=== PATIENT | male | born 1940 | race Asian ===

== ENCOUNTER 2023-08-11 17:23 | Inpatient (IN) | payer OTHER ==
[~2023-08-11] VITALS: Ht 165.1 cm; Wt 82.1 kg
[2023-08-11 17:55] LABS: BASOPHILS % (AUTO) 0.6 % (0.0-2.0); EOSINOPHILS # (AUTO) 0.1 K/uL (0.0-0.7); EOSINOPHILS % (AUTO) 1.8 % (0.0-6.0); HEMATOCRIT 30 % (39-51); HEMOGLOBIN 9.6 g/dL (13.5-17.5); LYMPHOCYTES # (AUTO) 0.5 K/uL (0.8-4.8); LYMPHOCYTES % (AUTO) 8.4 % (20.0-44.0); MEAN CORPUSCULAR HEMOGLOBIN 30 PG (26.0-33.0); MEAN CORPUSCULAR HGB CONC 33 g/dl (31.0-36.0); MEAN CORPUSCULAR VOLUME 93 fL (80-96); MONOCYTES # (AUTO) 0.3 K/uL (0.1-1.30); MONOCYTES % (AUTO) 4.5 % (2.0-12.0); NEUTROPHILS # (AUTO) 5.1 K/uL (1.8-8.9); NEUTROPHILS % (AUTO) 84.7 % (43.0-81.0); PLATELET COUNT (AUTO) 126 K/uL (150-450); RED BLOOD CELL COUNT(AUTO) 3.18 MIL/uL (4.5-6.0); RED CELL DISTRIBUTION WIDTH 14.5 % (11.5-15.0)
[2023-08-11 18:08] LABS: CALCIUM, SERUM 7.7 mg/dL (8.5-10.1); CARBON DIOXIDE 25 mmol/L (21-32); CHLORIDE 110 mmol/L (98-107); CREATININE 1.7 mg/dL (0.6-1.3); GLUCOSE 163 mg/dL (74-106); SODIUM SERUM 137 mmol/L (136-145); UREA NITROGEN, BLOOD 23 mg/dL (7-18)
[2023-08-11 18:10] LABS: INR 0.99 (0.91-1.10); PROTHROMBIN TIME 10.2 SECS (9.2-11.1)
[2023-08-11] MEDS ORDERED: ONDANSETRON HCL/PF 4 MG/2 ML VIAL ONE (18:52)
[2023-08-11] MEDS: ONDANSETRON HCL/PF - ER 4 MG/2 ML VIAL IV ONE (18:56)
[2023-08-11] MEDS ORDERED: FUROSEMIDE 20 MG/2 ML VIAL ONE (21:31)
[2023-08-11] MEDS: FUROSEMIDE 20 MG/2 ML VIAL IV ONE (21:35)
[2023-08-11 22:30] VITALS: BP 119/82; TEMP 97.7; O2SAT 98
[2023-08-11] MEDS ORDERED: ACETAMINOPHEN 325 MG TABLET PO PRN (23:00)
[2023-08-11] MEDS ORDERED: ONDANSETRON HCL/PF 4 MG/2 ML VIAL IVP PRN (23:00)
[2023-08-11] MEDS ORDERED: MORPHINE SULFATE INJ 2 MG/ML DISP.SYRIN IV PRN (23:00)
[2023-08-12 00:41] VITALS: BP 130/59; TEMP 98.8; O2SAT 96
[2023-08-12 04:43] VITALS: BP 150/64; TEMP 98.4; O2SAT 96
[2023-08-12 06:57] LABS: BASOPHILS % (AUTO) 0.4 % (0.0-2.0); EOSINOPHILS # (AUTO) 0.2 K/uL (0.0-0.7); EOSINOPHILS % (AUTO) 3.7 % (0.0-6.0); HEMATOCRIT 26 % (39-51); HEMOGLOBIN 8.9 g/dL (13.5-17.5); LYMPHOCYTES # (AUTO) 0.6 K/uL (0.8-4.8); LYMPHOCYTES % (AUTO) 11.7 % (20.0-44.0); MEAN CORPUSCULAR HEMOGLOBIN 31 PG (26.0-33.0); MEAN CORPUSCULAR HGB CONC 35 g/dl (31.0-36.0); MEAN CORPUSCULAR VOLUME 90 fL (80-96); MONOCYTES # (AUTO) 0.4 K/uL (0.1-1.30); MONOCYTES % (AUTO) 6.5 % (2.0-12.0); NEUTROPHILS # (AUTO) 4.2 K/uL (1.8-8.9); NEUTROPHILS % (AUTO) 77.7 % (43.0-81.0); PLATELET COUNT (AUTO) 118 K/uL (150-450); RED BLOOD CELL COUNT(AUTO) 2.86 MIL/uL (4.5-6.0); RED CELL DISTRIBUTION WIDTH 14.3 % (11.5-15.0); WHITE BLOOD COUNT (AUTO) 5.4 K/uL (4.3-11.0)
[2023-08-12 07:32] LABS: CARBON DIOXIDE 27 mmol/L (21-32); CHLORIDE 106 mmol/L (98-107); CREATININE 1.9 mg/dL (0.6-1.3); GLUCOSE 105 mg/dL (74-106); PHOSPHORUS 3.4 mg/dL (2.5-4.9); POTASSIUM 3.7 mmol/L (3.5-5.1); SODIUM SERUM 140 mmol/L (136-145); UREA NITROGEN, BLOOD 28 mg/dL (7-18)
[2023-08-12 07:44] LABS: MAGNESIUM 2.2 mg/dL (1.8-2.4)
[2023-08-12 08:01] VITALS: BP 168/67; TEMP 98.8; O2SAT 97
[2023-08-12] MEDS ORDERED: METO-358 PO (08:17)
[2023-08-12] MEDS ORDERED: DEXL60CA3 PO (08:17)
[2023-08-12] MEDS ORDERED: DOCU100T2 PO (08:17)
[2023-08-12] MEDS ORDERED: LOSA50TA39 PO (08:17)
[2023-08-12] MEDS ORDERED: EZET10TA15 PO (08:17)
[2023-08-12] MEDS ORDERED: ATOR40TA PO (08:17)
[2023-08-12] MEDS ORDERED: ASPI-1169 PO (08:17)
[2023-08-12] MEDS ORDERED: TAMS-12 PO (08:17)
[2023-08-12] MEDS ORDERED: ICOS1CAP PO (08:17)
[2023-08-12] MEDS ORDERED: HYDR-3642 PO (08:17)
[2023-08-12] MEDS ORDERED: TADA5TAB13 PO (08:17)
[2023-08-12] MEDS ORDERED: LEVO25TA7 PO (08:17)
[2023-08-12] MEDS ORDERED: ALLO100T PO (08:17)
[2023-08-12] MEDS ORDERED: hydrOXYzine 10 MG TABLET PO PRN (09:30)
[2023-08-12] MEDS ORDERED: Medication Not On Formulary EA (Icosapent Ethyl (Vascepa) 2 GM) PO SCH (09:30)
[2023-08-12] MEDS ORDERED: Medication Not On Formulary EA (Tadalafil 5 MG) PO SCH (09:30)
[2023-08-12] MEDS: LEVOTHYROXINE SODIUM 25 MCG TABLET PO SCH (10:01)
[2023-08-12] MEDS: BUMETANIDE INJ 8 MG in IV NS 0.9% 48 ML IV ONE (10:01)
[2023-08-12] MEDS: ATORVASTATIN 40 MG TABLET PO SCH (10:01)
[2023-08-12] MEDS: LOSARTAN POTASSIUM 50 MG TABLET PO SCH (10:01)
[2023-08-12] MEDS: TAMSULOSIN 0.4 MG CAP.SR.24H PO SCH (10:01)
[2023-08-12] MEDS: EZETIMIBE 10 MG TABLET PO SCH (10:01)
[2023-08-12] MEDS: ALLOPURINOL 100 MG TABLET PO SCH (10:02)
[2023-08-12] MEDS: ASPIRIN 81 MG TAB.CHEW PO SCH (10:02)
[2023-08-12] MEDS: METOPROLOL SUCCINATE 50 MG TAB.SR.24H PO SCH (10:05)
[2023-08-12] MEDS: DOCUSATE SODIUM 100 MG CAPSULE PO SCH (10:05)
[2023-08-12 12:00] VITALS: BP 153/60; TEMP 98.4; O2SAT 96
[2023-08-12 16:00] VITALS: BP 137/62; TEMP 98.4; O2SAT 97
[2023-08-12 16:29] LABS: APPEARANCE,URINE CLEAR (CLEAR); BILIRUBIN,URINE NEGATIVE (NEGATIVE); BLOOD, URINE NEGATIVE Ery/uL (NEGATIVE); COLOR,URINE YELLOW (YELLOW); KETONES,URINE NEGATIVE (NEGATIVE); LEUKOCYTE ESTERASE ,URINE NEGATIVE (NEGATIVE); NITRITE, URINE NEGATIVE (NEGATIVE); PH,URINE 5.5 (5.0-8.0); PROTEIN,URINE TRACE mg/dl (NEGATIVE); UGLUCOSE NEGATIVE (NEGATIVE); UROBILINOGEN,URINE 0.2 EU/dL (0.2)
[2023-08-12 17:05] LABS: CREATININE, URINE < 13.0 MG/DL (30.0-125.0); URINE SODIUM, RANDOM 123 mmol/l (40-220)
[2023-08-12 17:48] LABS: ADD URINE CULTURE NO; BACTERIA,URINE None seen /HPF (None Seen); MUCUS,URINE Few /LPF (None Seen); RBC,URINE NONE SEEN /HPF (0-2); SQUAMOUS EPITHELIAL CELL,UR None Seen /HPF (None Seen); WBC,URINE NONE SEEN /HPF (0-3)
[2023-08-12 18:37] LABS: EOSINOPHIL,URINE None Seen
[2023-08-12 20:00] VITALS: BP 148/61; TEMP 98.4; O2SAT 94; O2SAT 95
[2023-08-13] VITALS (7 sets, daily range): BP systolic 103–165; BP diastolic 54–70; TEMP 97.9–98.4; O2SAT 95–98
[2023-08-13 07:10] LABS: BASOPHILS % (AUTO) 0.4 % (0.0-2.0); EOSINOPHILS # (AUTO) 0.2 K/uL (0.0-0.7); EOSINOPHILS % (AUTO) 5.6 % (0.0-6.0); HEMATOCRIT 27 % (39-51); HEMOGLOBIN 9.3 g/dL (13.5-17.5); LYMPHOCYTES # (AUTO) 0.8 K/uL (0.8-4.8); LYMPHOCYTES % (AUTO) 17.4 % (20.0-44.0); MEAN CORPUSCULAR HEMOGLOBIN 31 PG (26.0-33.0); MEAN CORPUSCULAR HGB CONC 34 g/dl (31.0-36.0); MEAN CORPUSCULAR VOLUME 90 fL (80-96); MONOCYTES # (AUTO) 0.4 K/uL (0.1-1.30); NEUTROPHILS # (AUTO) 3.1 K/uL (1.8-8.9); NEUTROPHILS % (AUTO) 68.6 % (43.0-81.0); PLATELET COUNT (AUTO) 118 K/uL (150-450); RED CELL DISTRIBUTION WIDTH 14.7 % (11.5-15.0); WHITE BLOOD COUNT (AUTO) 4.5 K/uL (4.3-11.0)
[2023-08-13 07:24] LABS: ALANINE AMINOTRANSFERASE 17 U/L (12-78); ALKALINE PHOSPHATASE 75 U/L (46-116); ASPARTATE AMINOTRANSFERASE 8 U/L (15-37); BILIRUBIN,TOTAL 0.9 mg/dL (0.2-1.0); CARBON DIOXIDE 31 mmol/L (21-32); CHLORIDE 105 mmol/L (98-107); CREATININE 1.9 mg/dL (0.6-1.3); GLUCOSE 109 mg/dL (74-106); MAGNESIUM 2.1 mg/dL (1.8-2.4); PHOSPHORUS 3.9 mg/dL (2.5-4.9); POTASSIUM 3.6 mmol/L (3.5-5.1); SODIUM SERUM 143 mmol/L (136-145); TOTAL PROTEIN, SERUM 6.1 g/dL (6.4-8.2); UREA NITROGEN, BLOOD 29 mg/dL (7-18)
[2023-08-13 07:28] LABS: CREATINE KINASE, TOTAL 48 U/L (39-308)
[2023-08-13] MEDS: PANTOPRAZOLE 40 MG TABLET.DR PO SCH (07:46)
[2023-08-13] MEDS: APIXABAN 5 MG TABLET PO SCH (16:06)
[2023-08-14 03:47] VITALS: BP 180/65; TEMP 97.9; O2SAT 95
[2023-08-14 05:26] VITALS: BP 160/72; O2SAT 96
[2023-08-14 07:07] LABS: BASOPHILS % (AUTO) 0.5 % (0.0-2.0); EOSINOPHILS # (AUTO) 0.3 K/uL (0.0-0.7); EOSINOPHILS % (AUTO) 6.3 % (0.0-6.0); HEMATOCRIT 26 % (39-51); HEMOGLOBIN 8.9 g/dL (13.5-17.5); LYMPHOCYTES # (AUTO) 0.7 K/uL (0.8-4.8); MEAN CORPUSCULAR HEMOGLOBIN 31 PG (26.0-33.0); MEAN CORPUSCULAR HGB CONC 35 g/dl (31.0-36.0); MEAN CORPUSCULAR VOLUME 89 fL (80-96); MONOCYTES # (AUTO) 0.3 K/uL (0.1-1.30); MONOCYTES % (AUTO) 6.7 % (2.0-12.0); NEUTROPHILS # (AUTO) 3.1 K/uL (1.8-8.9); NEUTROPHILS % (AUTO) 70.5 % (43.0-81.0); PLATELET COUNT (AUTO) 122 K/uL (150-450); RED BLOOD CELL COUNT(AUTO) 2.88 MIL/uL (4.5-6.0); RED CELL DISTRIBUTION WIDTH 14.5 % (11.5-15.0); WHITE BLOOD COUNT (AUTO) 4.5 K/uL (4.3-11.0)
[2023-08-14 07:10] LABS: PTH, INTACT 31 pg/mL (15-65)
[2023-08-14 07:55] LABS: CALCIUM, SERUM 8.2 mg/dL (8.5-10.1); CARBON DIOXIDE 29 mmol/L (21-32); CHLORIDE 101 mmol/L (98-107); CREATININE 1.8 mg/dL (0.6-1.3); GLUCOSE 104 mg/dL (74-106); MAGNESIUM 2.1 mg/dL (1.8-2.4); PHOSPHORUS 3.6 mg/dL (2.5-4.9); POTASSIUM 3.7 mmol/L (3.5-5.1); SODIUM SERUM 137 mmol/L (136-145); UREA NITROGEN, BLOOD 32 mg/dL (7-18)
[2023-08-14 08:38] VITALS: BP 160/68; TEMP 98.2; O2SAT 96
[2023-08-14] MEDS: AMLODIPINE BESYLATE 5 MG TABLET PO SCH (11:42)
[2023-08-14 11:55] VITALS: BP 163/70; TEMP 97.9; O2SAT 98
[2023-08-14] MEDS ORDERED: APIX5TAB PO (13:10)
[2023-08-14] MEDS ORDERED: AMLO-212 PO (13:10)
[2023-08-14 15:10] LABS: *SPE A/G RATIO 1.5 (0.7-1.7); *SPE ALBUMIN 3.4 g/dL (2.9-4.4); *SPE ALPHA-1-GLOBULIN 0.2 g/dL (0.0-0.4); *SPE ALPHA-2-GLOBULIN 0.7 g/dL (0.4-1.0); *SPE BETA GLOBULIN 0.6 g/dL (0.7-1.3); *SPE GLOBULIN, TOTAL 2.2 g/dL (2.2-3.9); *SPE M-SPIKE Not Observed g/dL (Not Observed); *SPE PROTEIN TOTAL 5.6 g/dL (6.0-8.5); *SPEGAMMA GLOBULIN 0.7 g/dL (0.4-1.8)
[2023-08-14 16:05] VITALS: BP 152/74; TEMP 97.7; O2SAT 96
[2023-08-21] MEDS ORDERED: APIXABAN 5 MG TABLET PO SCH (17:00)
== END 2023-08-14 16:00 | disposition home or self-care (01) | DRG 291 ==
LOC: ER 17:26 → TELE 21:46
PROVIDERS: ADMIT Nurse Practitioner Acute Care; ATTEND Nurse Practitioner Family
DX: I13.0 Hypertensive heart and chronic kidney disease with heart failure and stage 1 through stage 4 chronic kidney disease, or unspecified chronic kidney disease (principal); I50.33 Acute on chronic diastolic (congestive) heart failure; N17.0 Acute kidney failure with tubular necrosis; D68.59 Other primary thrombophilia; I82.411 Acute embolism and thrombosis of right femoral vein; I82.511 Chronic embolism and thrombosis of right femoral vein; E66.01 Morbid (severe) obesity due to excess calories; I73.9 Peripheral vascular disease, unspecified; N18.9 Chronic kidney disease, unspecified; Z98.62 Peripheral vascular angioplasty status; K21.9 Gastro-esophageal reflux disease without esophagitis; N40.0 Benign prostatic hyperplasia without lower urinary tract symptoms; D64.9 Anemia, unspecified; E03.9 Hypothyroidism, unspecified; E78.5 Hyperlipidemia, unspecified; E79.0 Hyperuricemia without signs of inflammatory arthritis and tophaceous disease; Z79.82 Long term (current) use of aspirin; Z79.890 Hormone replacement therapy; Z79.899 Other long term (current) drug therapy
CPT/HCPCS: 36415; 71045-TC; 71250-TC; 76770-TC; 78582; 80048-TC; 80053-TC; 81001; 82550-TC; 82570-TC; 83735-TC; 83880; 83970; 84100-TC; 84155; 84165; 84300-TC; 84484-TC; 85025-TC; 85730-TC; 93307-TC; 93970-TC; 97112-TC; 97116-TC; 97530-TC; A4223; A9540; A9567; G0378; J1940; J2405; J3490; J7050